=== PATIENT | male | born 1985 | race American Indian/Alaskan Native ===

== ENCOUNTER 2020-01-21 08:58 | Emergency (ER) | payer OTHER ==
[2020-01-21 09:09] VITALS: BP 126/84
[2020-01-21] MEDS ORDERED: KETOROLAC 60 MG/2 ML INJ IM ONE (11:24)
--- NOTE | 2020-01-21 12:02 | Emergency Department Report ---
ED Back Pain/Injury HPI - General Chief Complaint: Back Pain/Injury Stated Complaint: BACK PAIN Time Seen by Provider: 01/21/20 10:46 Source: patient Limitations: No Limitations - History of Present Illness Initial Comments: Patient is a 34-year-old male who presents emergency room complaints of back pain that began 3 days ago. He denies any fall or injury. 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 He denies any fever, nausea, vomiting, diarrhea, urinary symptoms, numbness, weakness, bowel or bladder incontinence. He denies any past medical history. No allergies to medications. - Related Data Previous Rx's Medication Instructions Recorded Last Taken Type Naproxen [EC-Naprosyn] 500 mg PO BID PRN #14 tablet. 01/21/20 Unknown Rx methOCARBAMOL [Robaxin TAB] 500 mg PO BID PRN #14 tab 01/21/20 Unknown Rx Allergies Allergy/AdvReac Type Severity Reaction Status Date / Time No Known Allergies Allergy Unverified 01/21/20 09:07 ED Review of Systems ROS: Stated complaint: BACK PAIN Other details as noted in HPI Comment: All other systems reviewed and negative ED Past Medical Hx - Past Medical History Previous Medical History?: No - Surgical History Past Surgical History?: No - Social History Smoking Status: Current Every Day Smoker Substance Use Type: Alcohol - Medications Home Medications: Home Medications Medication Instructions Recorded Confirmed Last Taken Type Naproxen [EC-Naprosyn] 500 mg PO BID PRN #14 tablet. 01/21/20 Unknown Rx methOCARBAMOL [Robaxin TAB] 500 mg PO BID PRN #14 tab 01/21/20 Unknown Rx ED Physical Exam - General Limitations: No Limitations General appearance: alert, in no apparent distress - Head Head exam: Present: atraumatic, normocephalic - Eye Eye exam: Present: normal appearance - ENT ENT exam: Present: mucous membranes moist - Neck Neck exam: Present: normal inspection, full ROM. Absent: tenderness - Respiratory Respiratory exam: Present: normal lung sounds bilaterally. Absent: respiratory distress, wheezes, rales, rhonchi, stridor, chest wall tenderness, accessory muscle use, decreased breath sounds, prolonged expiratory - Cardiovascular Cardiovascular Exam: Present: regular rate, normal rhythm, normal heart sounds. Absent: systolic murmur, diastolic murmur, rubs, gallop - Back Exam Back exam: Present: normal inspection, full ROM, paraspinal tenderness (left sided T-spine paraspinal muscular ttp, no midline C-spine, T-spine or L-spine ttp, no step offs, no deformities). Absent: vertebral tenderness - Neurological Exam Neurological exam: Present: alert, oriented X3, CN II-XII intact, normal gait. Absent: motor sensory deficit - Psychiatric Psychiatric exam: Present: normal affect, normal mood - Skin Skin exam: Present: warm, dry, intact ED Course Vital Signs 01/21/20 09:07 Temperature 97.9 F Pulse Rate 81 Respiratory 18 Rate Blood Pressure 126/84 O2 Sat by Pulse 100 Oximetry ED Medical Decision Making - Medical Decision Making Patient is a 34-year-old male who presents emergency room complaints of back pain that began 3 days ago. He denies any fall or injury. 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 He denies any fever, nausea, vomiting, diarrhea, urinary symptoms, numbness, weakness, bowel or bladder incontinence. He denies any past medical history. No allergies to medications. vitals are normal. on exam: left sided T-spine paraspinal muscular ttp, no midline C-spine, T-spine or L-spine ttp, no step offs, no deformities, no focal neuro deficits. Patient has no red flag warning signs of back pain, no trauma, no unexplained weight loss, no neuro deficits, age is not greater than 50, no fever, no IV drug use, no steroid use, no history of cancer. Patient given Toradol IM while in the emergency department and symptoms improved. Examination appears most consistent with muscle strain. Patient given prescription for naproxen, Robaxin. Advised patient Please take medication as prescribed as needed. Do not drive or operate heavy machinery or work while taking muscle relaxer Robaxin. May use ice pack, heating pad, rest, Epson salt bath. Follow-up with a primary care doctor. Return to emergency room for any new or worsening symptoms. - Differential Diagnosis Strain, sprain, DDD, bulging disc, spondylosis, spondylolisthesis, radiculo Critical care attestation.: If time is entered above; I have spent that time in minutes in the direct care of this critically ill patient, excluding procedure time. ED Disposition Clinical Impression: Acute thoracic myofascial strain Qualifiers: Encounter type: initial encounter Qualified Code(s): S29.019A - Strain of musc le and tendon of unspecified wall of thorax, initial encounter Disposition: TO HOME OR SELFCARE Is pt being admited?: No Does the pt Need Aspirin: No Condition: Stable Instructions: Muscle Strain (ED) Additional Instructions: Please take medication as prescribed as needed. Do not drive or operate heavy machinery or work while taking muscle relaxer Robaxin. May use ice pack, heating pad, rest, Epson salt bath. Follow-up with a primary care doctor. Return to emergency room for any new or worsening symptoms. Prescriptions: Naproxen [EC-Naprosyn] 500 mg PO BID PRN #14 tablet.dr PRN Reason: pain methOCARBAMOL [Robaxin TAB] 500 mg PO BID PRN #14 tab PRN Reason: pain Referrals: CHANTE ALSTON MD [Staff Physician] - 2-3 Days [facility] [Provider Group] - 2-3 Days Forms: Work/School Release Form(ED) Time of Disposition: 12:01 Print Language: SETSWANA
== END 2020-01-21 12:20 | disposition home or self-care (01) ==
LOC: ED 08:58
DX: S29.019A Strain of muscle and tendon of unspecified wall of thorax, initial encounter (principal); F17.200 Nicotine dependence, unspecified, uncomplicated; Z79.899 Other long term (current) drug therapy
CPT/HCPCS: 96372; 99282; J1885

== ENCOUNTER 2020-06-29 10:44 | Emergency (ER) | payer OTHER ==
[2020-06-29 10:52] VITALS: BP 127/84
--- NOTE | 2020-06-29 11:04 | Emergency Department Report ---
ED General Adult HPI - General Chief complaint: Chest Pain Stated complaint: LEFT RIB PAIN Time Seen by Provider: 06/29/20 10:50 Source: patient Mode of arrival: Ambulatory Limitations: No Limitations - History of Present Illness Initial comments: 34-year-old -[place] male patient presents with complaints of left lower rib pain x1 week. Patient states while helping a friend move furniture, he hit his ribs on the edge of a banister. He denies any bruising, shortness of breath, abdominal pain, or cough. Pain worsens with deep breathing and to touch per patient. He has not tried any OTC medications for his symptoms. Patient denies any past medical history. - Related Data Previous Rx's Medication Instructions Recorded Last Taken Type methOCARBAMOL [Robaxin TAB] 500 mg PO BID PRN #14 tab 01/21/20 Unknown Rx Naproxen [EC-Naprosyn] 500 mg PO BID PRN #14 tablet. 06/29/20 Unknown Rx Allergies Allergy/AdvReac Type Severity Reaction Status Date / Time No Known Allergies Allergy Verified 06/29/20 10:44 ED Review of Systems ROS: Stated complaint: LEFT RIB PAIN Other details as noted in HPI Constitutional: denies: chills, diaphoresis, fever, malaise, weakness Respiratory: denies: cough, shortness of breath Cardiovascular: as per HPI Gastrointestinal: denies: abdominal pain Skin: denies: change in color ED Past Medical Hx - Past Medical History Previous Medical History?: No - Surgical History Past Surgical History?: No - Social History Smoking Status: Current Every Day Smoker Substance Use Type: Alcohol - Medications Home Medications: Home Medications Medication Instructions Recorded Confirmed Last Taken Type methOCARBAMOL [Robaxin TAB] 500 mg PO BID PRN #14 tab 01/21/20 Unknown Rx Naproxen [EC-Naprosyn] 500 mg PO BID PRN #14 tablet. 06/29/20 Unknown Rx ED Physical Exam - General Limitations: No Limitations General appearance: alert, in no apparent distress - Head Head exam: Present: atraumatic, normocephalic - Eye Eye exam: Present: normal appearance. Absent: scleral icterus - Respiratory Respiratory exam: Present: normal lung sounds bilaterally, chest wall tenderness (Tenderness to palpation noted to anterior lower ribs without bruising or obvious deformity). Absent: respiratory distress - Cardiovascular Cardiovascular Exam: Present: regular rate, normal rhythm. Absent: systolic murmur, diastolic murmur, rubs, gallop - GI/Abdominal GI/Abdominal exam: Present: soft. Absent: tenderness - Neurological Exam Neurological exam: Present: alert, oriented X3, normal gait - Psychiatric Psychiatric exam: Present: normal affect, normal mood - Skin Skin exam: Present: warm, dry, intact, normal color. Absent: rash ED Course Vital Signs 06/29/20 10:49 Temperature 98.2 F Pulse Rate 99 H Respiratory 18 Rate Blood Pressure 127/84 O2 Sat by Pulse 100 Oximetry ED Medical Decision Making - Radiology Data Radiology results: report reviewed LEFT RIBS 4 VIEWS INDICATION / CLINICAL INFORMATION: Anterior, lower rib pain after direct trauma. COMPARISON: None available. FINDINGS: RIBS: No acute, displaced fracture or other acute abnormality. LUNGS: No acute findings. No pneumothorax. - Medical Decision Making 34-year-old -[place] male patient presents with complaints of left lower rib pain x1 week. Patient states while helping a friend move furniture, he hit his ribs on the edge of a banister. He denies any bruising, shortness of breath, abdominal pain, or cough. Pain worsens with deep breathing and to touch per patient. He has not tried any OTC medications for his symptoms. Patient denies any past medical history. X-rays negative for any rib or lung abnormalities. Will treat for rib contusion with NSAIDs and icing. His vitals are normal, he is well-appearing, he is stable for discharge home. Recommend follow-up with primary care in 3 to 5 days as needed. Strict return precautions discussed in detail with patient who verbalized understanding. Critical care attestation.: If time is entered above; I have spent that time in minutes in the direct care of this critically ill patient, excluding procedure time. ED Disposition Clinical Impression: Contusion of rib on left side Qualifiers: Encounter type: initial encounter Qualified Code(s): S20.212A - Contusion of left front wall of thorax, initial encounter Disposition: TO HOME OR SELFCARE Is pt being admited?: No Condition: Stable Instructions: Contusion, Chest Wall Pain Prescriptions: Naproxen [EC-Naprosyn] 500 mg PO BID PRN #14 [email or web address] [email or web address] Reason: pain Referrals: [facility] [Other] - 3-5 Days Forms: Work/School Release Form(ED)
--- NOTE | 2020-06-29 11:15 | XRay Report ---
LEFT RIBS 4 VIEWS INDICATION / CLINICAL INFORMATION: Anterior, lower rib pain after direct trauma. COMPARISON: None available. FINDINGS: RIBS: No acute, displaced fracture or other acute abnormality. LUNGS: No acute findings. No pneumothorax. Signer Name: Sarabjit Del Real MD Signed: 06/29/2020 11:10 AM Workstation Name: [id number]
== END 2020-06-29 12:10 | disposition home or self-care (01) ==
LOC: ED 10:44
DX: S20.212A Contusion of left front wall of thorax, initial encounter (principal); F17.200 Nicotine dependence, unspecified, uncomplicated; Z79.899 Other long term (current) drug therapy; X58.XXXA Exposure to other specified factors, initial encounter; Y93.89 Activity, other specified; Y92.89 Other specified places as the place of occurrence of the external cause; Y99.8 Other external cause status
CPT/HCPCS: 99283